=== PATIENT | male | born 1970 | race Caucasian/White ===

== ENCOUNTER 2020-01-07 07:55 | Outpatient (REF) | payer OTHER, SELFPAY ==
[2020-01-07 08:30] LABS: MANUAL DIFF FLAG NO
[2020-01-07 08:40] LABS: Basophils Percent Auto 0.5 % (0-2); Eosinophils Absolute Auto 0.1 X10*3/uL (0.0-0.4); Eosinophils Percent Auto 1.8 % (0-4); Hematocrit 45.2 % (42-52); Hemoglobin 15.4 g/dl (14.0-18.0); Imm Gran Abs Auto 0.01 X10*3/uL (0.00-0.03); Imm Gran Pct Auto 0.2 % (0.0-0.4); Lymphocytes Absolute Auto 1.5 X10*3/uL (1.2-4.9); Lymphocytes Percent Auto 32.8 % (20-40); Mean Corpuscular HGB Conc 34.1 g/dl (31.0-36.0); Mean Corpuscular Hemoglobin 31.9 pg (27.0-33.0); Mean Corpuscular Volume 93.6 fL (80-98); Mean Platelet Volume 10.7 fL (9.4-12.4); Monocytes Absolute Auto 0.5 X10*3/uL (0.1-1.2); Neutrophils Absolute Auto 2.3 X10*3/uL (2.0-8.3); Neutrophils Percent Auto 52.7 % (45-73); Platelet Count 148 X10*3/uL (160-400); Red Blood Count 4.83 X10*6/uL (4.60-5.80); White Blood Count 4.4 X10*3/uL (4.8-10.8)
[2020-01-07 09:17] LABS: Alanine Aminotransferase 27 U/L (0-40); Albumin Level 4.3 g/dL (3.5-5.0); Alkaline Phosphatase 62 U/L (39-117); Anion Gap 11 (12-20); Aspartate Amino Transferase 28 U/L (5-37); Bilirubin Total 0.8 mg/dL (0.0-1.0); Blood Urea Nitrogen 12 mg/dL (9-16); Calcium 9.3 mg/dL (8.4-10.2); Carbon Dioxide 30 mmol/L (22-29); Chloride 103 mmol/L (96-108); Cholesterol 239 mg/dL; Estimated Glomerular Filt Rate > 60; Glucose Fasting 114 mg/dL (60-99); HDL Cholesterol 83 mg/dL; Iron 160 mcg/dL (45-160); LDL Cholesterol Calculated 145 mg/dl; Percent Iron Saturation 66 % (15-50); Sodium 140 mmol/L (135-145); Total Iron Binding Capacity 243 mcg/dL (228-428); Total Protein 7.2 g/dL (6.5-8.0); Triglycerides 58 mg/dL; Unsaturated Iron Binding 83 ug/dL
[2020-01-07 10:00] LABS: Ferritin 270 ng/mL (20-250); Prostate Specific Antigen Scr 0.87 ng/mL (<0.05-4.0); Thyroid Stimulating Hormone < 0.01 mIU/mL (0.32-4.0)
== END 2020-01-07 07:56 | disposition home or self-care (01) ==
LOC: HO.LAB 07:55
PROVIDERS: PCP Physician Assistant; Visit Provider Physician Assistant
DX: Z12.5 Encounter for screening for malignant neoplasm of prostate (principal); R79.89 Other specified abnormal findings of blood chemistry; E05.90 Thyrotoxicosis, unspecified without thyrotoxic crisis or storm; I10 Essential (primary) hypertension
CPT/HCPCS: 36415; 80053; 80061; 82728; 83540; 84153; 84443; 85025

== ENCOUNTER → 2020-01-29 15:08 | Outpatient (BNVA) | payer OTHER, SELFPAY | PROVIDERS: PCP Physician Assistant; Referring Provider Physician Assistant; Visit Provider Nurse Practitioner Family | DX: Z12.11 Encounter for screening for malignant neoplasm of colon (principal); F17.210 Nicotine dependence, cigarettes, uncomplicated; Z79.899 Other long term (current) drug therapy ==

== ENCOUNTER → 2020-02-22 09:06 | Outpatient (BNVA) | payer OTHER, SELFPAY | PROVIDERS: PCP Physician Assistant; Referring Provider Physician Assistant; Visit Provider Internal Medicine Cardiovascular Disease | DX: Z01.810 Encounter for preprocedural cardiovascular examination (principal); I10 Essential (primary) hypertension; E05.90 Thyrotoxicosis, unspecified without thyrotoxic crisis or storm; Z79.899 Other long term (current) drug therapy | CPT/HCPCS: 93005 ==

== ENCOUNTER 2020-03-14 19:30 | Outpatient (RCR) | payer OTHER, SELFPAY | END 2020-03-17 23:55 | disposition home or self-care (01) | LOC: HO.PAOS 19:30 | PROVIDERS: Visit Provider Psychologist | DX: F32.1 Major depressive disorder, single episode, moderate (principal) | CPT/HCPCS: 90834 ==

== ENCOUNTER 2020-08-31 07:58 | Outpatient (REF) | payer OTHER, SELFPAY ==
--- NOTE | 2020-09-06 08:58 | MHC.AU.AHA ---
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 Previous Hearing Test Results: 12/31/2018 [facility] Asymmetric mild, dropping to severe sensorineural hearing loss at 4588-1621 Hz, rising to moderate to moderately-severe loss at 8000 Hz. Left ear thresholds 15-25 dB poorer than right at 750-1500 and 8000 Hz. Ear History: History of occupational noise exposure?: Yes Medical History: Medical History: High Blood Pressure, Thyroid Disease Medication List: Propanolol Hearing Instrument History- Right Ear: Camera Storage Clerk: [id number] Systems Model: ibeatyou [id number] 90-M312 Serial Number: [id number] Battery Size: 312 Repair Warranty: Dispensed By: [facility] Hearing Instrument History- Left Ear: Camera Storage Clerk: Phonak Model: ibeatyou [id number] 90-M312 Serial Number: [id number] Battery Size: 312 Warranty: Dispensed By: [facility] Otoscopy: Right Ear: Unremarkable Left Ear: Unremarkable Tympanometry: Not performed at today's visit. Previous results have indicated normal middle ear function bilaterally Hearing Evaluation: Transducer(s) Used: Insert Earphones Bone Conduction Method: Conventional Audiometry Stimuli Used: Pure Tones Right Ear: Description of Hearing: Mild dropping to severe sensorineural hearing loss from 250-4000 Hz, rising to a moderate loss at 8000 Hz Left Ear: Description of Hearing: Mild dropping to a severe sensorineural hearing loss Speech Recognition Threshold (SRT): Method Used: Monitored Live Voice Stimuli Used: Spondee Words Right Ear: 35 dB HL Left Ear: 45 dB HL Word Discrimination: Method: Recorded Lists Word Lists Used: NU-6 Right Ear: 96% at 75 dB HL Left Ear: 92% at 85 dB HL Comparison: Compared to most recent evaluation: Left ear thresholds are stable. Right ear levels at 1000 and 1500 Hz have decreased 5-10 dB. Speech discrimination has improved compared to 2019 which may relate to the fact Kareem is now using hearing aids which help stimulate the auditory system and improve understanding. Recommendations: Left hearing aid is not working. Sent for repair. Right aid, cleaned and reprogrammed to today's test results. Audiological re-evaluation in one year. Will send a reminder card. Diagnosis: Primary Diagnosis: H90.3 Bilateral Sensorineural Hearing Loss Signature: Provider: Alfonso Manriquez, CCC-A
== END 2020-08-31 07:59 | disposition home or self-care (01) ==
LOC: HO.SH 07:58
PROVIDERS: Visit Provider Physician Assistant
DX: H90.3 Sensorineural hearing loss, bilateral (principal)
CPT/HCPCS: 92557

== ENCOUNTER 2020-09-07 10:00 | Outpatient (REF) | payer SELFPAY | END 2020-09-07 10:01 | disposition home or self-care (01) | LOC: HO.HAP 10:00 | PROVIDERS: Visit Provider Physician Assistant | DX: Z46.1 Encounter for fitting and adjustment of hearing aid (principal) | CPT/HCPCS: V5014 ==

== ENCOUNTER → 2021-05-04 09:04 | Outpatient (BNVA) | payer OTHER, SELFPAY | PROVIDERS: PCP Physician Assistant; Referring Provider Physician Assistant; Visit Provider Internal Medicine Cardiovascular Disease | DX: I10 Essential (primary) hypertension (principal); E05.90 Thyrotoxicosis, unspecified without thyrotoxic crisis or storm | CPT/HCPCS: 93005 ==

== ENCOUNTER → 2021-06-19 09:35 | Outpatient (REF) | payer OTHER, SELFPAY ==
--- NOTE | 2021-06-19 09:43 | CA_ITS ---
Transthoracic Echocardiogram Patient (Last, First, Middle): Kareem Rick V Gender: Male Date of : 1970 Age: 50 Procedure Date: 06/19/2021 Procedure Type: Transthoracic Echocardiogram Location: OP Height: 180.34 cm Weight: 77.11 kg BSA: 1.97 m2 Heart Rate: bpm BP: 140 / 90 mmHg Sole Ruffer: Referring MD: Steven Robbins MD Symptoms: I10 - Essential (primary) hypertension Study Quality: Fair ECG Rhythm: Sinus Conclusions: - The left ventricular systolic function is normal. The calculated ejection fraction is 59% by biplane method. - No obvious valvular pathology seen on this study. - There is no dilatation of the sinuses of Valsalva and mild dilatation of the ascending aorta measuring 4.00 cm. Findings Left Ventricle Normal left ventricular cavity size. There is mildly increased left ventricular wall thickness. The left ventricular systolic function is normal. The calculated ejection fraction is 59% by biplane method. There is no evidence of regional wall motion abnormalities. Diastolic function is normal for age. Right Ventricle Normal right ventricular cavity size and systolic function. Atria The left atrium is mildly dilated. The right atrium is normal in size. Aortic Valve There is a normal trileaflet aortic valve. There is no aortic valve stenosis. There is no aortic valve regurgitation. Mitral Valve The mitral valve appears normal. There is trace mitral valve regurgitation. There is no mitral valve stenosis. Pulmonic Valve The pulmonic valve was not well visualized. Tricuspid Valve There is trace tricuspid valve regurgitation. The pulmonary artery systolic pressure is normal. Great Vessels There is no dilatation of the sinuses of Valsalva and mild dilatation of the ascending aorta measuring 4.00 cm. Venous The inferior vena cava is normal in size and collapses greater than 50% with inspiration. Pericardium/Pleural There is no evidence of pericardial effusion. Prior Study Comparison No prior study available for comparison. Recommendations, Care & Conclusions No obvious valvular pathology seen on this study. Measurements 2D Linear Measurements IVSd: 1.25 0.6-0.9/0.6-1.0 cm LVIDd: 4.63 3.9-5.3/4.2-5.9 cm LVIDd Index: 2.35 2.4-3.2/2.2-3.1 cm/m2 LVIDs: 2.97 2.0-3.6 cm LVPWd: 1.28 0.7-1.1 cm Ao Root: 3.50 2.1-3.5 cm LA Diam: 3.80 2.7-3.8/3.0-4.0 cm LAIDs Index: 1.93 1.5-2.3 cm/m2 LV Mass: 278.52 67-162/88-224 g LV Mass Index: 141.38 43-95/49-115 g/m2 LVOT Diam: 2.20 3.0+(-)1.3 cm 2D Systolic Function EF 4C: 56.10 >55% EF 2C: 60.90 >55% EF BiP: 59.40 >55% Mitral Valve MV Pk E: 0.62 MV PK A: 0.44 MV Decel Time: 185.00 E/A: 1.40 E'Lateral: 11.30 E'Medial: 5.98 E/E' Med: 10.30 E/E' Lat: 5.50 PHT: 54.00 MVA PHT: 4.07 Decel Shelby: 3.34 Aortic Valve AoV Pk Lukas: 1.13 AoV Mn Lukas: 0.78 AoV VTI: 0.24 AoV Pk Grad: 5.00 Aov Mn Grad: 3.00 TAVIA Cont.VTI: 3.24 LVOT LVOT Pk Lukas: 0.93 LVOT Mn Lukas: 0.62 LVOT VTI: 0.21 LVOT Pk Grad: 3.00 LVOT Mn Grad: 2.00 LVOT Diam: 2.20 LVOT Area: 3.80 Diastolic Function MV Pk E: 0.62 MV Pk A: 0.44 E/A: 1.40 E'Medial: 5.98 E/E' Med: 10.30 E' Laterial: 11.30 E/E' Lat: 5.50 Right Ventricle TAPSE (mm): 23.00 TVS' Lukas: 10.00 Tricuspid Valve TR Pk Lukas: 2.17 TR Pk Grad: 19.00 RA Press: 3.00 RVSP: 22.00 Great Vessels Aorta Ao Root-2D: 3.50 2.0-3.7 cm Sinus of Valsalva: 3.30 2.0-3.5 cm Ao Asc: 4.00 2.1-3.4 cm Pulmonary Valve PV Pk Lukas: 0.88 Peak PV Grad: 3.00 Updated in Other Vendor System with Status of Final Cheo Reyez MD electronically signed on 06/19/2021 10:58:31 AM with status of Final
== END ==
LOC: HO.CARD 09:35
PROVIDERS: PCP Physician Assistant; Visit Provider Internal Medicine Cardiovascular Disease
DX: I10 Essential (primary) hypertension (principal)
CPT/HCPCS: 93306

== ENCOUNTER 2023-07-18 21:11 | Emergency (ER) | payer OTHER, SELFPAY ==
[2023-07-18 21:16] VITALS: BP 170/90; PULSE 90; RESP 18; TEMP 36.3; O2SAT 99; BMI 21.7
[2023-07-18 21:33] VITALS: BP 162/97; PULSE 98; RESP 22; TEMP 36.7; O2SAT 99
[2023-07-18 22:51] VITALS: BP 162/97; PULSE 98; RESP 22; TEMP 36.6; O2SAT 99
--- NOTE | 2023-07-18 23:12 | ED.EAR ---
HPI - Ear Problem General Chief complaint: Ear Problems Stated complaint: rt ear hearing aid stuck in ear Time Seen by Provider: 07/18/23 22:27 Source: patient Mode of arrival: ambulatory Limitations: no limitations History of Present Illness HPI Narrative: Patient just prior to arrival noticed the Rubber part of the hearing aid got stuck in his right ear tried to remote unable to remove it Related Data Previous Rx's ?Medication ?Instructions ?Recorded peg 3350-electrolytes 227.1 240 ml PO Q10M #1 ea 01/29/20 gram-21.5 gram-6.36gram oral powder packet (AYLIENytely) hydrochlorothiazide 12.5 mg capsule 12.5 mg PO QAM #90 caps 05/04/21 propranolol 120 mg capsule,24 120 mg PO DAILY 90 days #90 caps 05/04/21 hr,extended release Allergies Allergy/AdvReac Type Severity Reaction Status Date / Time bee venom protein (honey bee) Allergy Severe massive Verified 07/18/23 21:18 swelling, itchy dry skin azithromycin AdvReac Mild VOMITING, Verified 07/18/23 21:18 [From Zithromax Z-Nayan] nausea and vomiting Review of Systems Review of Systems: Yes all other systems are reviewed and are negative [facility] [place] Past Medical History Medical History Smoker Elevated ferritin level Tachycardia Benign essential hypertension Graves' disease Thrombocytopenia Neutropenia Vitamin D deficiency Hyperthyroidism Elevated liver enzymes Surgical History History of back surgery Family History Family History Father No problems noted. Mother No problems noted. Son No problems noted. Son No problems noted. Daughter No problems noted. Other Adopted Family history unknown Social History Social History Alcohol intake: current Alcohol intake frequency: a few times a week Patient Tobacco Use Status: Current everyday Tobacco user Cigarette Packs Per Day: 0.5 Cigarettes Per Day: 10 Years Smoked: 20 +/- Advance Directives: No Advance Directives Information Provided: No Physical Exam Vital Signs: Vital Signs: Last Vital Signs Temp 98 F 07/18/23 22:51 Pulse 98 07/18/23 22:51 Resp 22 H 07/18/23 22:51 BP 162/97 H 07/18/23 22:51 Pulse Ox 99 07/18/23 22:51 O2 Del Method Room Air 07/18/23 22:51 BMI result Body Mass Index 21.7 HEENT: Outer ear/TM images: 1. Level piece of hearing aid stuck in EAC Procedures FB Removal Ear Location: ear canal (R) Foreign Body Suspected: other plastic TM intact pre-procedure: yes Foreign Body Removed: yes Foreign Body Removal Technique: forceps Tympanic Membrane Intact Post Procedure: Yes Patient Tolerated Procedure: well Complications: none Discharge Plan Discharge Clinical Impression: Acute foreign body of right ear canal Patient Disposition: Home, Self-Care Instructions: Ear Foreign Body (ED) Additional Instructions: Foreign body was removed Care as advised Prescriptions: No Action Golytely 227.1-21.5-6.36 gram powder in packet 240 ml PO Q10M Qty: 1 0RF Rx Instructions: until fecal effluent is clear; do not exceed a total volume [id number] mL hydrochlorothiazide 12.5 mg capsule 12.5 mg PO QAM Qty: 90 4RF propranolol 120 mg capsule,extended release 24 hr 120 mg PO DAILY 90 Days Qty: 90 4RF Interventions: ED Discharge Assessment Last Done: 07/18/23 22:51 Discharge Date/Time: 07/18/23 22:52 Print Language: [place]
== END 2023-07-18 22:52 | disposition home or self-care (01) ==
PROVIDERS: Emergency Provider Internal Medicine; PCP Physician Assistant
DX: T16.1XXA Foreign body in right ear, initial encounter (principal); W44.G1XA Audio device entering into or through a natural orifice, initial encounter; Y93.9 Activity, unspecified; Y92.9 Unspecified place or not applicable; Y99.8 Other external cause status; Z79.899 Other long term (current) drug therapy
CPT/HCPCS: 69200; 99282; 99284

== ENCOUNTER 2024-08-27 10:40 | Outpatient (REF) | payer SELFPAY | END 2024-08-27 10:41 | disposition home or self-care (01) | LOC: HO.HAP 10:40 | PROVIDERS: Visit Provider Physician Assistant | DX: Z46.1 Encounter for fitting and adjustment of hearing aid (principal) | CPT/HCPCS: V5267 ==